=== PATIENT | female | born 1945 | race Caucasian/White ===

== ENCOUNTER → 2016-07-31 | Emergency (ER) | payer MEDICARE, OTHER ==
--- NOTE | 2016-07-31 20:26 | ED NURSING NOTES ---
Clinical Report - Nurses [facility] [place] [address] 07/31/2016 18:11 [id number] TRI[facility] Triage time 18:22. Acuity: LEVEL 3. Chief Complaint: SHORTNESS OF BREATH and DIFFICULTY BREATHING and (SOB, acute weakness, unable to stand (baseline is stand-pivot).). 18:35 07/31/16. SEPSIS SCREEN: Sepsis Screen. Negative (no infection suspected/documented). BERKLEY COMA SCORE: Berkley Coma Scale: 15- eyes open spontaneously (4); best verbal response- oriented x 4 (5); best motor response- obeys commands (6). --18:35 Alexander Tapia R.N. 18:28 07/31/16. BP: 145/68. HR: 89. RR: 20. O2 saturation: 98% on room air. Temp: 98 F (oral). Pain level now: 0/10. --18:35 Alexander Tapia R.N. Weight: 111.1 kg stated. Height/Length: 62 inches Per Patient. BMI: 44.8. --18:33 Alexander Tapia R.N. Medications Unknown. --18:31 Alexander Tapia R.N. Unable to Obtain. --18:33 Alexander Tapia R.N. Allergies No Known Drug Allergy. --18:31 Alexander Tapia R.N. History Arrived by private vehicle. Historian: patient and family. Onset. (2 days ago). ( Pt's son this week.). 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 SOCIAL HX: Smoker- current status unknown (cigarette). Occasional alcohol use. No drug use. ABUSE ASSESSMENT: No report of abuse. --18:35 Alexander Tapia R.N. PROBLEMS: CVA - Cerebrovascular Accident. Diabetes Mellitus. Hypertension. Asthma. --18:33 Alexander Tapia R.N. ADDITIONAL SURGERIES: Knee replacement. --18:33 Alexander Tapia R.N. Interventions ID band on patient. To treatment room. --18:35 Alexander Tapia R.N. PHYSICAL ASSESSMENT 18:37 07/31/16. To room via wheelchair. (2 person assist required to get her out of the car and into bed.). GENERAL / NEURO / PSYCH: Alert. Oriented X 4. Appears in distress. HEENT: Mucous membranes are pink. RESPIRATORY: Moderate respiratory distress. The patient can speak a few words at a time. Accessory muscle use. Wheezing present. ( tight dry cough). CVS: Capillary refill less than 2 seconds. GI / : Abdomen soft and nontender. Bowel sounds within normal limits. SKIN: Skin is warm and dry. Normal skin turgor. --18:37 Alexander Tapia R.N. NURSING PROGRESS NOTES 18:37 07/31/16. Pulse oximeter and NIBP monitor placed on patient; monitor alarms on. Patient gowned. Head of bed elevated. Two patient identifiers checked. Call light placed in reach. Side rails up x 2. Bed placed in lowest position. Brakes of bed on. Patient ready for evaluation- chart flagged. ( Pt's family is at the bedside.). --18:37 Alexander Tapia R.N. 18:45 07/31/2016 Albuterol Neb TX Nebulizer 2.5 mg given. Given by the respiratory therapist. Allergies verified and confirmed 5 rights. --18:53 Alexander Tapia R.N. 18:57 07/31/2016 Site #1 started via IV in the right upper arm with an 20g angiocath; one attempt. --18:57 Marli Mancera R.N. 18:57 07/31/2016 SOLU-MEDROL (MethylPREDNISolone Sodium Succ) IVP 60 mg given over 2 minute(s) via site #1. Allergies verified and confirmed 5 rights. IV patency established. IV site checked: no pain, redness, or swelling. IV flushed thoroughly pre- and post-medication administration. IVP given by RN. --18:57 Marli Mancera R.N. 19:04 07/31/16. Care transferred and report given (BETH Mercado). --19:04 Alexander Tapia R.N. 19:23 07/31/16. O2 saturation: 93%. --19:23 Rogelio Matson R.N. 20:03 07/31/16. BP: 131/69. --20:03 Rogelio Matson R.N. DISPOSITION / DISCHARGE 20:35 07/31/16. BP: 138/69. HR: 81. RR: 18. O2 saturation: 96%. Temp: 97.8 F. Pain level now 0/10. --20:36 Rogelio Matson R.N. Departure time: 2031. --20:36 Rogelio Matson R.N. No learning barriers present. Discharge instructions provided and reviewed with the patient and family. Reviewed medication(s) information. Patient and family verbalized understanding. Written instructions provided in Kenyan. The patient was discharged by the physician. She was discharged home and accompanied by family. She left the Emergency Department in a wheelchair and via private vehicle. Family member driving. ( Pt able to transfer to wheelchair with assistance pt and family verbalized understanding of discharge instructions and follow up care). --20:50 Rogelio Matson R.N. Locked/Released at 08/01/2016 4:54 by Rogelio Matson R.N.
--- NOTE | 2016-07-31 20:26 | ED ORDER SUMMARY ---
..... Patient: STEVE VU OrderSheet [facility] VisitID: [id number] [place] [address] 71y, F Registration Date/Time: 07/31/2016 ORDER SHEET Weight: 111.1 kg (stated) Allergies: No Known Drug Allergy GENERAL ORDERS: Peak Flow (pre & post) Stat (18:28 07/31/2016 JSimbeck R.N. per protocol) (18:53 JSimbeck R.N.) Old Records (prov paloma last month: Asthma) (18:49 07/31/2016 Marium HSU) (Ack 18:51 TBergley) (19:48 TBergley) CBC w Diff Urgent (19:32 07/31/2016 DBeyer R.N. per protocol) (Ack 19:42 TBergley) (19:50 TBergley) CMP Urgent (19:32 07/31/2016 DBeyer R.N. per protocol) (Ack 19:42 TBergley) (19:50 TBergley) Cardiac Panel Stat (19:32 07/31/2016 DBeyer R.N. per protocol) (Ack 19:42 TBergley) (19:50 TBergley) MEDICATION ORDERS: Albuterol Neb Tx 2.5 mg (NOW) (18:28 07/31/2016 RITIKAimbeck R.N. per protocol) (18:53 JSimbeck R.N.) IV FLUIDS: Solu-MEDROL IV 60 mg (NOW) (18:50 07/31/2016 Marium HSU) (18:57 EHassan R.N.) ORDER SHEET NOTES: [Electronically signed by Rogelio Matson R.N. (04:54 08/01/2016)] [Electronically signed by Brandon Nathan MD (01:20 08/04/2016)] [Electronically locked/signed by Rogelio Matson R.N. (04:54 08/01/2016)]
--- NOTE | 2016-07-31 20:26 | ED CLINICAL REPORT ---
Clinical Report - Physicians/Mid Levels [facility] [address] [place] [address] 07/31/2016 18:11 Patient: STEVE VU Time Seen: 18:44 Jul 31 2016. Arrived- By private vehicle. Historian- patient. CPT: ER phys charges level 4 (#[id number]). HISTORY OF PRESENT ILLNESS Chief Complaint: DYSPNEA and HISTORY OF ASTHMA. This started yesterday Came on during the stress of having her Son yesterday. He apparently suddenly of a heart attack. Patient feels like this is pure asthma as she has no cold symptoms at all. and is still present. The dyspnea is described as moderate. No cough, sputum production, fever, sweating episodes or wheezing. No chills, dizziness or palpitations. She has had dyspnea on exertion. Similar symptoms previously: Many times, as bad. Seen in the ED. Hospitalized. Diagnosis: asthma. Recent medical care: The patient was seen recently at another facility and hospitalized (1 months ago: [facility]). Seen for similar symptoms. Evaluation/treatment: x-rays and labs- Admission to Hospital. ABX, steroids, HHN. Diagnosis: asthma. REVIEW OF SYSTEMS No eye irritation, sore throat, nasal discharge, sinus drainage or nausea. No vomiting, abdominal pain, diarrhea, black stools or headache. No fainting episodes, difficulty with urination, skin rash or enlarged lymph nodes. All systems otherwise negative, except as recorded above. PAST HISTORY Asthma. Admitted [place] Jun 2016 for Asthma. CVA - Cerebrovascular Accident. Diabetes Mellitus. Hypertension. Asthma. ADDITIONAL SURGERIES: Knee replacement. Medications: Unable to Obtain. Unknown. Allergies: No Known Drug Allergy. SOCIAL HISTORY Light tobacco smoker (cigarette)- less than 1/2 a pack per day. Occasional alcohol use. ADDITIONAL NOTES The nursing notes have been reviewed. PHYSICAL EXAM Vital Signs: 07/31/2016 18:28 BP: 145/68. HR: 89. RR: 20. O2 saturation: 98%. Temp: 98 F. Pain level now: 0/10. Appearance: Alert. Anxious. Patient in moderate distress. Eyes: Eyes normal inspection. ENT: Pharynx normal. Neck: Normal inspection. CVS: Normal heart rate and rhythm. Heart sounds normal. Pulses normal. Respiratory: Moderate respiratory distress with tachypnea. Expiratory moderate bilateral wheezes diffusely. Abdomen: Soft and nontender. Back: Normal inspection. Skin: Skin warm. Normal skin color. No rash. Extremities: Extremities exhibit normal ROM. No lower extremity edema. Neuro: Oriented X 3. No motor deficit. No sensory deficit. Reflexes normal. LABS, X-RAYS, AND EKG Laboratory Tests: CBC w Diff: (MANOLO: 07/31/2016 18:37) ( MsgRcvd 07/31/2016 19:53) Final results Test Result Flag Units (Reference) WHITE BLOOD COUNT 10.6 K/uL (4.5-11.5) RED BLOOD COUNT 5.05 M/uL (4.00-5.20) HEMOGLOBIN 14.2 gm/dL (12.0-16.0) HEMATOCRIT 43.9 % (36.0-46.0) MEAN CELL VOLUME 87 fL (80-100) MEAN CORPUSCULAR HGB 28 pg (26-34) MEAN CORPUSCULAR HGB CONC 32 g/dL (31-37) RED CELL DISTRIBUTION WIDTH 15.1 H % (11.6-14.8) PLATELET COUNT 318 K/uL (150-400) NEUTROPHIL % 71.0 % (50-75) LYMPH % 18.3 L % (25-40) MONO % 7.0 % (3-14) EOSINOPHIL % 3.0 % (0-4) BASOPHIL % 0.7 % (0-2) CHEM 13 PANEL: (MANOLO: 07/31/2016 18:37) ( MsgRcvd 07/31/2016 20:12) Final results Test Result Flag Units (Reference) GLUCOSE 208 H mg/dL (70-110) BUN 19 H mg/dL (7-18) CREATININE 1.3 mg/dL (0.6-1.3) Estimated GFR 42.79 mL/min Estimated GFR- 51.87 mL/min Note: Persistent reduction over 3 months in eGFR<60 mL/min/1.73 m2 defines CKD. Patients with eGFR values>=60 mL/min/1.73 m2 may also have CKD if evidence ofpersistent proteinuria. Additional information may be foundat www.kidney.org. SODIUM 142 mmol/L (136-145) POTASSIUM 3.8 mmol/L (3.5-5.1) CHLORIDE 105 mmol/L (98-107) CARBON DIOXIDE 29 mmol/L (21-32) CALCIUM 9.0 mg/dL (8.5-10.1) TOTAL PROTEIN 7.2 g/dL (6.4-8.2) ALBUMIN 3.1 L g/dL (3.3-5.0) BILIRUBIN, TOTAL 0.4 mg/dL (0.0-1.0) ALKALINE PHOSPHATASE 99 U/L (46-116) AST (SGOT) 15 U/L (15-37) ALT (SGPT) 18 U/L (12-78) MAGNESIUM 1.7 L mg/dL (1.8-2.4) CPK 61 U/L (24-260) TROPONIN I 0.06 ng/mL (0.00-1.5) TROPONIN REFERENCE RANGE:<0.1 NEGATIVE0.1-1.5 INDETERMINANT>1.5 POSITIVE . PROGRESS AND PROCEDURES Course of Care: Albuterol HHN 18:45 07/31/16. Albuterol hand-held neb 1. Wheezing now resolved. We will watch for 1 hour to make sure she doesn't have a rebound. Solu-Medrol 60 mg IV. 20:23 07/31/16. Patient observed and had no rebound asthma. Patient/family counseled. Disposition: Discharged. Condition: stable and improved. CLINICAL IMPRESSION Moderate persistent asthma with an acute exacerbation. No status asthmaticus. INSTRUCTIONS No strenuous activity. Rest. Avoid tobacco smoke. Warnings: Further evaluation is necessary. GENERAL WARNINGS: Return or contact your physician immediately if your condition worsens or changes unexpectedly, if not improving as expected, or if other problems arise. Prescription Medications: Albuterol HFA oral inhaler: inhale 1-2 puffs via spacer every 4 hours as needed for wheezing or difficulty breathing, until symptoms improve. Dispense one (1) unit. No refill. Albuterol 0.083% Inhalation Solution: inhale 1 unit dose (3 mL) via nebulizer every 4 hours until symptoms improve, as needed for wheezing or difficulty breathing. Dispense thirty (30) units. No refill. Prednisone 40 mg po q day for 3 days. Follow-up: Return to the emergency department if worse. Follow up with your doctor Thursday in four days. Call for an appointment. Understanding of the discharge instructions verbalized by patient and family. (Electronically signed by Brandon Nathan MD 08/04/2016 1:20)
--- NOTE | 2016-07-31 20:26 | ED NURSING NOTES ---
Clinical Report - Nurses [facility] [place] [address] 07/31/2016 18:11 [id number] Triage time 18:22. Acuity: LEVEL 3. Chief Complaint: SHORTNESS OF BREATH and DIFFICULTY BREATHING and (SOB, acute weakness, unable to stand (baseline is stand-pivot).). 18:35 07/31/16. SEPSIS SCREEN: Sepsis Screen. Negative (no infection suspected/documented). BERKLEY COMA SCORE: Berkley Coma Scale: 15- eyes open spontaneously (4); best verbal response- oriented x 4 (5); best motor response- obeys commands (6). --18:35 Alexander Tapia R.N. 18:28 07/31/16. BP: 145/68. HR: 89. RR: 20. O2 saturation: 98% on room air. Temp: 98 F (oral). Pain level now: 0/10. --18:35 Alexander Tapia R.N. Weight: 111.1 kg stated. Height/Length: 62 inches Per Patient. BMI: 44.8. --18:33 Alexander Tapia R.N. Medications Unknown. --18:31 Alexander Tapia R.N. Unable to Obtain. --18:33 Alexander Tapia R.N. Allergies No Known Drug Allergy. --18:31 Alexander Tapia R.N. History Arrived by private vehicle. Historian: patient and family. Onset. (2 days ago). ( Pt's son this week.). 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 SOCIAL HX: Smoker- current status unknown (cigarette). Occasional alcohol use. No drug use. ABUSE ASSESSMENT: No report of abuse. --18:35 Alexander Tapia R.N. PROBLEMS: CVA - Cerebrovascular Accident. Diabetes Mellitus. Hypertension. Asthma. --18:33 Alexander Tapia R.N. ADDITIONAL SURGERIES: Knee replacement. --18:33 Alexander Tapia R.N. Interventions ID band on patient. To treatment room. --18:35 Alexander Tapia R.N. PHYSICAL ASSESSMENT 18:37 07/31/16. To room via wheelchair. (2 person assist required to get her out of the car and into bed.). GENERAL / NEURO / PSYCH: Alert. Oriented X 4. Appears in distress. HEENT: Mucous membranes are pink. RESPIRATORY: Moderate respiratory distress. The patient can speak a few words at a time. Accessory muscle use. Wheezing present. ( tight dry cough). CVS: Capillary refill less than 2 seconds. GI / : Abdomen soft and nontender. Bowel sounds within normal limits. SKIN: Skin is warm and dry. Normal skin turgor. --18:37 Alexander Tapia R.N. NURSING PROGRESS NOTES 18:37 07/31/16. Pulse oximeter and NIBP monitor placed on patient; monitor alarms on. Patient gowned. Head of bed elevated. Two patient identifiers checked. Call light placed in reach. Side rails up x 2. Bed placed in lowest position. Brakes of bed on. Patient ready for evaluation- chart flagged. ( Pt's family is at the bedside.). --18:37 Alexander Tapia R.N. 18:45 07/31/2016 Albuterol Neb TX Nebulizer 2.5 mg given. Given by the respiratory therapist. Allergies verified and confirmed 5 rights. --18:53 Alexander Tapia R.N. 18:57 07/31/2016 Site #1 started via IV in the right upper arm with an 20g angiocath; one attempt. --18:57 Marli Mancera R.N. 18:57 07/31/2016 SOLU-MEDROL (MethylPREDNISolone Sodium Succ) IVP 60 mg given over 2 minute(s) via site #1. Allergies verified and confirmed 5 rights. IV patency established. IV site checked: no pain, redness, or swelling. IV flushed thoroughly pre- and post-medication administration. IVP given by RN. --18:57 Marli Mancera R.N. 19:04 07/31/16. Care transferred and report given (BETH Mercado). --19:04 Alexander Tapia R.N. 19:23 07/31/16. O2 saturation: 93%. --19:23 Rogelio Matson R.N. 20:03 07/31/16. BP: 131/69. --20:03 Rogelio Matson R.N. DISPOSITION / DISCHARGE 20:35 07/31/16. BP: 138/69. HR: 81. RR: 18. O2 saturation: 96%. Temp: 97.8 F. Pain level now 0/10. --20:36 Rogelio Matson R.N. Departure time: 2031. --20:36 Rogelio Matson R.N. No learning barriers present. Discharge instructions provided and reviewed with the patient and family. Reviewed medication(s) information. Patient and family verbalized understanding. Written instructions provided in Albanian. The patient was discharged by the physician. She was discharged home and accompanied by family. She left the Emergency Department in a wheelchair and via private vehicle. Family member driving. ( Pt able to transfer to wheelchair with assistance pt and family verbalized understanding of discharge instructions and follow up care). --20:50 Rogelio Matson R.N. Locked/Released at 08/01/2016 4:54 by Rogelio Matson R.N.
--- NOTE | 2016-07-31 20:26 | ED ORDER SUMMARY ---
..... Patient: STEVE VU OrderSheet [facility] VisitID: [id number] [place] [address] 71y, F Registration Date/Time: 07/31/2016 ORDER SHEET Weight: 111.1 kg (stated) Allergies: No Known Drug Allergy GENERAL ORDERS: Peak Flow (pre & post) Stat (18:28 07/31/2016 JSimbeck R.N. per protocol) (18:53 JSimbeck R.N.) Old Records (prov paloma last month: Asthma) (18:49 07/31/2016 Marium [facility]) (Ack 18:51 TBergley) (19:48 TBergley) CBC w Diff Urgent (19:32 07/31/2016 DBeyer R.N. per protocol) (Ack 19:42 TBergley) (19:50 TBergley) CMP Urgent (19:32 07/31/2016 DBeyer R.N. per protocol) (Ack 19:42 TBergley) (19:50 TBergley) Cardiac Panel Stat (19:32 07/31/2016 DBeyer R.N. per protocol) (Ack 19:42 TBergley) (19:50 TBergley) MEDICATION ORDERS: Albuterol Neb Tx 2.5 mg (NOW) (18:28 07/31/2016 RITIKAimbeck R.N. per protocol) (18:53 JSimbeck R.N.) IV FLUIDS: Solu-MEDROL IV 60 mg (NOW) (18:50 07/31/2016 Marium [facility]) (18:57 EHassan R.N.) ORDER SHEET NOTES: [Electronically signed by Rogelio Matson R.N. (04:54 08/01/2016)] [Electronically signed by Brandon Nathan MD (01:20 08/04/2016)] [Electronically locked/signed by Rogelio Matson R.N. (04:54 08/01/2016)]
--- NOTE | 2016-08-04 01:20 | ED MED RECONCILIATION SUMMARY ---
Patient: STEVE VU Medication Reconciliation Report [facility] VisitID: [id number] [place] [address] 71y, F Registration Date/Time: 07/31/2016 Weight: 111.1 kg Height/Length: 62 in. BMI: 44.8 ALLERGIES: No Known Drug Allergy The patient's Home Medications are listed below: Unable to obtain. The source(s) of the original Home Medication information: Not obtained. The following Medications were given to the patient in the Emergency Department: Albuterol [Neb Tx] Neb TX 2.5 mg, administered: 07/31/2016 6:45:00 PM SOLU-MEDROL [IVP] IVP 60 mg, administered: 07/31/2016 6:57:00 PM The following Medications were prescribed to the patient: Prednisone 40 mg po q day for 3 days. -- Brandon Nathan MD Albuterol HFA oral inhaler: inhale 1-2 puffs via spacer every 4 hours as needed for wheezing or difficulty breathing, until symptoms improve. Dispense one (1) unit. No refill. -- Brandon Nathan MD Albuterol 0.083% Inhalation Solution: inhale 1 unit dose (3 mL) via nebulizer every 4 hours until symptoms improve, as needed for wheezing or difficulty breathing. Dispense thirty (30) units. No refill. -- Brandon Nathan MD
--- NOTE | 2016-08-04 01:20 | ED MAR SUMMARY ---
..... Medication Administration Record [facility] [address] [place] [address] Patient: STEVE VU Visit ID: [id number] 71y, F Weight: 111.1 kg Height/Length: 62 in BMI: 44.8 ALLERGIES: No Known Drug Allergy Given 18:45 07/31/2016 Alexander Tapia R.N. Medication Administered: ALBUTEROL [NEB TX], Dose: 2.5 mg Nebulizer Neb TX. Medication Ordered: Albuterol Neb Tx 2.5 mg (NOW). Given 18:57 07/31/2016 Marli Mancera R.N. Medication Administered: SOLU-MEDROL [IVP] (METHYLPREDNISOLONE SODIUM SUCC), Dose: 60 mg IVP over 2 minute(s), Site: #1 right upper arm. Medication Ordered: Solu-MEDROL IV 60 mg (NOW).
--- NOTE | 2016-08-04 01:20 | ED DISCHARGE INSTRUCTIONS ---
Patient: STEVE VU General Instructions [facility] VisitID: [id number] [place] [address] 71y, F Registration Date/Time: 07/31/2016 Moderate persistent asthma with an acute exacerbation. No status asthmaticus. INSTRUCTIONS No strenuous activity. Rest. Avoid tobacco smoke. Warnings: Further evaluation is necessary. GENERAL WARNINGS: Return or contact your physician immediately if your condition worsens or changes unexpectedly, if not improving as expected, or if other problems arise. Prescription Medications: Albuterol HFA oral inhaler: inhale 1-2 puffs via spacer every 4 hours as needed for wheezing or difficulty breathing, until symptoms improve. Dispense one (1) unit. No refill. Albuterol 0.083% Inhalation Solution: inhale 1 unit dose (3 mL) via nebulizer every 4 hours until symptoms improve, as needed for wheezing or difficulty breathing. Dispense thirty (30) units. No refill. Prednisone 40 mg po q day for 3 days. Follow-up: Return to the emergency department if worse. Follow up with your doctor Thursday in four days. Call for an appointment. Understanding of the discharge instructions verbalized by patient and family. ADDITIONAL INFORMATION Asthma [Adult] Asthma is a disease where the small air passages within the lung go into spasm and restrict the flow of air. Inflammation and swelling of the airways cause further restriction. During an acute asthma attack, these factors cause difficulty breathing, wheezing, cough and chest tightness. An asthma attack can be triggered by many things. Common triggers include the common cold, bronchitis, pneumonia, irritants such as smoke or pullutants in the air, emotional upset and heavy exercise. Inmany adults with asthma, allergies todust, mold, pollen and animal dander can cause an asthma attack. Skipping doses of daily asthma medicine can also bring on an asthma attack. Asthma can be controlled with proper medicines and decreased exposure to known allergens. Home Care: Take prescribed medicine exactly at the times advised. If you have a hand-held inhaler or aerosol breathing medicine, do not use it more than once every four hours, unless told to do so. (If you need this medicine more than every four hours, you may need to return to the Emergency Room.) If prescribed an antibiotic or prednisone, take all of the medicine even if you are feeling better after a few days. Do not smoke. Avoid being exposed to the smoke of others. Some persons with asthma have worsening of their symptoms when they take aspirin and non-steroidal medicines like ibuprofen (Motrin, Advil) and naproxen (Aleve, Naprosyn). Talk to your doctor if you think this may apply to you. Acetaminophen (Tylenol)should be safe to use. Follow Up with your doctor, or as advised by our staff. Always bring all of your current medicines with you for your doctor to see. If you do not already have one, talk to your doctor about developing a personalized "Asthma Action Plan." [NOTE: A pneumococcal vaccine and yearly flu shot (every fall) are recommended. Ask your doctor about this.] Get Prompt Medical Attention if any of the following occur: Increased wheezing or shortness of breath Need to use your inhalers more often than usual without relief Fever of 100.4F (38C) or higher, or as directed by your healthcare provider Coughing up lots of dark-colored or bloody sputum (mucus) Chest pain with each breath You do not start to improve within 24 hours Call 911 If Any Of The Following Occur : Trouble walking or talking because of shortness of breath If you use a peak flow meter andyou are still in the red zone (less than 50 percent) 15 minutes after using inhaler medication Lips or fingernails turning hodges or blue Albuterol Sulfate Pressurized inhalation, suspension What is this medicine? ALBUTEROL (al BYOO ter ole) is a bronchodilator. It helps open up the airways in your lungs to make it easier to breathe. This medicine is used to treat and to prevent bronchospasm. How should I use this medicine? This medicine is for inhalation through the mouth. Follow the directions on your prescription label. Take your medicine at regular intervals. Do not use more often than directed. Make sure that you are using your inhaler correctly. Ask you doctor or health care provider if you have any questions. Talk to your registered nurse surgical services regarding the use of this medicine in children. Special care may be needed. What side effects may I notice from receiving this medicine? Side effects that you should report to your doctor or health career center director as soon as possible: allergic reactions like skin rash, itching or hives, swelling of the face, lips, or tongue breathing problems chest pain feeling faint or lightheaded, falls high blood pressure irregular heartbeat fever muscle cramps or weakness pain, tingling, numbness in the hands or feet vomiting Side effects that usually do not require medical attention (report to your doctor or health career center director if they continue or are bothersome): cough difficulty sleeping headache nervousness or trembling stomach upset stuffy or runny nose throat irritation unusual taste What may interact with this medicine? anti-infectives like chloroquine and pentamidine caffeine cisapride diuretics medicines for colds medicines for depression or for emotional or psychotic conditions medicines for weight loss including some herbal products methadone some antibiotics like clarithromycin, erythromycin, levofloxacin, and linezolid some heart medicines steroid hormones like dexamethasone, cortisone, hydrocortisone theophylline thyroid hormones What if I miss a dose? If you miss a dose, use it as soon as you can. If it is almost time for your next dose, use only that dose. Do not use double or extra doses. Where should I keep my medicine? Keep out of the reach of children. Store at room temperature between 15 and 30 degrees C (59 and 86 degrees F). The contents are under pressure and may burst when exposed to heat or flame. Do not freeze. This medicine does not work as well if it is too cold. Throw away any unused medicine after the expiration date. Inhalers need to be thrown away after the labeled number of puffs have been used or by the expiration date; whichever comes first. Ventolin HFA should be thrown away 12 months after removing from foil pouch. Check the instructions that come with your medicine. What should I tell my health care provider before I take this medicine? They need to know if you have any of the following conditions: diabetes heart disease or irregular heartbeat high blood pressure pheochromocytoma seizures thyroid disease an unusual or allergic reaction to albuterol, levalbuterol, sulfites, other medicines, foods, dyes, or preservatives or trying to get breast-feeding What should I watch for while using this medicine? Tell your doctor or health career center director if your symptoms do not improve. Do not use extra albuterol. If your asthma or bronchitis gets worse while you are using this medicine, call your doctor right away. If your mouth gets dry try chewing sugarless gum or sucking hard candy. Drink water as directed. Albuterol Sulfate Nebulizer solution What is this medicine? ALBUTEROL (al BYOO ter ole) is a bronchodilator. It helps to open up the airways in your lungs to make it easier to breathe. This medicine is used to treat and to prevent bronchospasm. How should I use this medicine? This medicine is used in a nebulizer. Nebulizers make a liquid into an aerosol that you breathe in through your mouth or your mouth and nose into your lungs. You will be taught how to use your nebulizer. Follow the directions on your prescription label. Take your medicine at regular intervals. Do not use more often than directed. Talk to your registered nurse surgical services regarding the use of this medicine in children. Special care may be needed. What side effects may I notice from receiving this medicine? Side effects that you should report to your doctor or health career center director as soon as possible: allergic reactions like skin rash, itching or hives, swelling of the face, lips, or tongue breathing problems chest pain feeling faint or lightheaded, falls high blood pressure irregular heartbeat fever muscle cramps or weakness pain, tingling, numbness in the hands or feet vomiting Side effects that usually do not require medical attention (report to your doctor or health career center director if they continue or are bothersome): cough difficulty sleeping headache nervousness, trembling stomach upset stuffy or runny nose throat irritation unusual taste What may interact with this medicine? anti-infectives like chloroquine and pentamidine caffeine cisapride diuretics medicines for colds medicines for depression or emotional or psychotic conditions medicines for weight loss including some herbal products methadone some antibiotics like clarithromycin, erythromycin, levofloxacin, and linezolid some heart medicines steroid hormones like dexamethasone, cortisone, hydrocortisone theophylline thyroid hormones What if I miss a dose? If you miss a dose, use it as soon as you can. If it is almost time for your next dose, use only that dose. Do not use double or extra doses. Where should I keep my medicine? Keep out of the reach of children. Store between 2 and 25 degrees C (36 and 77 degrees F). Do not freeze. Protect from light. Throw away any unused medicine after the expiration date. Most products are kept in the foil package until time of use. Some products can be used up to 1 week after they are removed from the foil pouch. Check the instructions that come with your medicine. What should I tell my health care provider before I take this medicine? They need to know if you have any of the following conditions: diabetes heart disease or irregular heartbeat high blood pressure pheochromocytoma seizures thyroid disease an unusual or allergic reaction to albuterol, levalbuterol, sulfites, other medicines, foods, dyes, or preservatives or trying to get breast-feeding What should I watch for while using this medicine? Tell your doctor or health career center director if your symptoms do not improve. Do not use extra albuterol. Call your doctor right away if your asthma or bronchitis gets worse while you are using this medicine. If your mouth gets dry try chewing sugarless gum or sucking hard candy. Drink water as directed. You have been given the following additional information: Asthma, Acute (Adult) Albuterol Sulfate Pressurized inhalation, suspension Albuterol Sulfate Nebulizer solution No strenuous activity. Rest. (Electronically signed by Brandon Nathan MD 08/04/2016 1:20)
--- NOTE | 2016-08-04 01:20 | ED MAR SUMMARY ---
..... Medication Administration Record [facility] [address] [place] [address] Patient: STEVE VU Visit ID: [id number] 71y, F Weight: 111.1 kg Height/Length: 62 in BMI: 44.8 ALLERGIES: No Known Drug Allergy Given 18:45 07/31/2016 Alexander Tapia R.N. Medication Administered: ALBUTEROL [NEB TX], Dose: 2.5 mg Nebulizer Neb TX. Medication Ordered: Albuterol Neb Tx 2.5 mg (NOW). Given 18:57 07/31/2016 Marli Mancera R.N. Medication Administered: SOLU-MEDROL [IVP] (METHYLPREDNISOLONE SODIUM SUCC), Dose: 60 mg IVP over 2 minute(s), Site: #1 right upper arm. Medication Ordered: Solu-MEDROL IV 60 mg (NOW).
--- NOTE | 2016-08-04 01:20 | ED MED RECONCILIATION SUMMARY ---
Patient: STEVE VU Medication Reconciliation Report [facility] VisitID: [id number] [place] [address] 71y, F Registration Date/Time: 07/31/2016 Weight: 111.1 kg Height/Length: 62 in. BMI: 44.8 ALLERGIES: No Known Drug Allergy The patient's Home Medications are listed below: Unable to obtain. The source(s) of the original Home Medication information: Not obtained. The following Medications were given to the patient in the Emergency Department: Albuterol [Neb Tx] Neb TX 2.5 mg, administered: 07/31/2016 6:45:00 PM SOLU-MEDROL [IVP] IVP 60 mg, administered: 07/31/2016 6:57:00 PM The following Medications were prescribed to the patient: Prednisone 40 mg po q day for 3 days. -- Brandon Nathan MD Albuterol HFA oral inhaler: inhale 1-2 puffs via spacer every 4 hours as needed for wheezing or difficulty breathing, until symptoms improve. Dispense one (1) unit. No refill. -- Brandon Nathan MD Albuterol 0.083% Inhalation Solution: inhale 1 unit dose (3 mL) via nebulizer every 4 hours until symptoms improve, as needed for wheezing or difficulty breathing. Dispense thirty (30) units. No refill. -- Brandon Nathan MD
== END ==
LOC: ED SRH 18:11
DX: J45.901 Unspecified asthma with (acute) exacerbation (principal); E11.9 Type 2 diabetes mellitus without complications; I10 Essential (primary) hypertension; F17.210 Nicotine dependence, cigarettes, uncomplicated
CPT/HCPCS: 90100; 90616; 92610; 92720; 95059